=== PATIENT | female | born 2000 | race Caucasian/White ===

== ENCOUNTER 2025-02-06 16:30 | Outpatient (CLI) | payer MEDICAID, SELFPAY | END 2025-02-06 16:31 | disposition home or self-care (01) | LOC: NFLDREF 02-08 15:16 | PROVIDERS: PCP Family Medicine; Referring Provider Family Medicine; Visit Provider Family Medicine | DX: D64.9 Anemia, unspecified (principal) | CPT/HCPCS: 85018 ==

== ENCOUNTER 2025-03-08 09:41 | Outpatient (CLI) | payer MEDICAID, SELFPAY | END 2025-03-08 09:42 | disposition home or self-care (01) | PROVIDERS: PCP Family Medicine; Visit Provider Physician Assistant | DX: R42 Dizziness and giddiness (principal); D64.9 Anemia, unspecified | CPT/HCPCS: 80053; 82728 ==